=== PATIENT | female | born 1955 | race Caucasian/White ===

== ENCOUNTER 2018-07-18 09:20 | Emergency (ER) | payer BC ==
[2018-07-18 09:56] LABS: BASO % 0.2 % (0-6); EOS % 2.3 % (0-6); GRAN % 46.1 % (47-80); HEMATOCRIT 42.7 % (35.0-47.0); HEMOGLOBIN 14.4 gm/dl (11.6-16.0); LYMPH % 40.5 % (16-45); MEAN CELL VOLUME 90.9 fl (81-97); MEAN CORPUSCULAR HEMOGLOBIN 30.6 pg (27-33); MEAN CORPUSCULAR HGB CONC 33.7 g/dl (32-36); MEAN PLATELET VOLUME 9.4 fl (7.4-10.4); MONO % 10.9 % (0-9); PLATELET COUNT 280 K/uL (130-400); RED CELL DISTRIBUTION WIDTH 13.5 % (11.5-14.5); WHITE BLOOD COUNT W/O DIFF 4.4 K/uL (4.2-12.2)
--- NOTE | 2018-07-18 10:06 | Emergency Department Record ---
History of Present Illness - General Chief Complaint: Numbness Stated Complaint: facial droop Time Seen by Provider: 07/18/18 09:38 Source: Patient Mode of Arrival: Ambulatory Limitations: No limitations - History of Present Illness Initial Comments: pt started having R facial drooping and numbness 21 hrs ago. pt denies other symptoms. pt was concerned that she might have a stroke. her water dribbled out of her mouth. Onset/Timin -: Hour(s) Location: Right face History of same: No Place: Home Severity: Moderate Improves With: None Worsens With: None On Anticoagulants: No Associated Symptoms: Denies other symptoms - [place] Coma Scale Eye Response: (4) Open spontaneously Motor Response: (6) Obeys commands Verbal Response: (5) Oriented [place] Total: 15 - Symptoms of Stroke Onset of Symptoms Date: 07/07/18 Symptoms of stroke: Muscle Weakness, Numbness - Related Data Home Medications: Home Medications Medication Instructions Recorded Confirmed Last Taken Triamterene/Hydrochlorothiazid 1 each PO DAILY 07/18/18 07/18/18 07/18/18 [Triamterene-Hctz 75-50 mg Tab] Previous Rx's Medication Instructions Recorded Prednisone [Prednisone 10Mg] 10 mg PO ASDIR #30 tab 07/18/18 Allergies/Adverse Reactions: Allergies Allergy/AdvReac Type Severity Reaction Status Date / Time latex Allergy Severe RASH Verified 07/18/18 09:30 Travel Screening - Travel/Exposure Within Last 30 Days Have you traveled within the last 30 days?: No - Travel/Exposure Within Last Year Have you traveled outside the [place] in the last year?: No - Additonal Travel Details Have you been exposed to anyone with a communicable illness?: No - Travel Symptoms Symptom Screening: None Review of Systems Reviewed: No additional complaints except as noted below Constitutional: Reports: As per HPI. Denies: Chills, Fever, Malaise, Night sweats, Weakness, Weight change Eyes: Reports: As per HPI. Denies: Eye discharge, Eye pain, Photophobia, Vision change ENT: Reports: As per HPI. Denies: Congestion, Dental pain, Ear pain, Epistaxis , Hearing loss, Throat pain Respiratory: Reports: As per HPI. Denies: Cough, Dyspnea, Hemoptysis, Stridor, Wheezes Cardiovascular: Reports: As per HPI. Denies: Arrhythmia, Chest pain, Dyspnea on exertion, Edema, Murmurs, Orthopnea, Palpitations, Paroxysmal nocturnal dyspnea, Rheumatic Fever, Syncope Endocrine: Reports: As per HPI. Denies: Fatigue, Heat or cold intolerance, Polydipsia, Polyuria Gastrointestinal: Reports: As per HPI. Denies: Abdominal pain, Constipation, Diarrhea, Hematemesis, Hematochezia, Melena, Nausea, Vomiting Genitourinary: Reports: As per HPI. Denies: Abnormal menses, Discharge, Dyspareunia, Dysuria, Frequency, Hematuria, Incontinence, Retention, Urgency Musculoskeletal: Reports: As per HPI. Denies: Arthralgia, Back pain, Gout, Joint swelling, Myalgia, Neck pain Skin: Reports: As per HPI. Denies: Bruising, Change in color, Change in hair/ nails, Lesions, Pruritus, Rash Neurological: Reports: As per HPI. Denies: Abnormal gait, Confusion, Headache, Numbness, Paresthesias, Seizure, Tingling, Tremors, Vertigo, Weakness Psychiatric: Reports: As per HPI. Denies: Anxiety, Auditory hallucinations, Depression, Homicidal thoughts, Suicidal thoughts, Visual hallucinations Hematological/Lymphatic: Reports: As per HPI. Denies: Anemia, Blood Clots, Easy bleeding, Easy bruising, Swollen glands Past Medical History - SOCIAL HISTORY Smoking Status: Never smoker Alcohol Use: Rare Drug Use: None - RESPIRATORY Hx Respiratory Disorders: Yes Hx Asthma: Yes Hx Sleep Apnea: Yes Hx of CPAP: Yes - CARDIOVASCULAR Hx Hypertension: Yes - NEURO Hx Neuro Disorders: No - GI Hx Reflux: Yes Comment:: gastric sleeve - Hx Genitourinary Disorders: No - ENDOCRINE Hx Endocrine Disorders: No Hx Diabetes: No Hx Thyroid Disease: No - MUSCULOSKELETAL Hx Musculoskeletal Disorders: Yes Hx Arthritis: Yes - PSYCH Hx Psych Problems: Yes Hx Anxiety: Yes Hx Depression: Yes - HEMATOLOGY/ONCOLOGY Hx Hematology/Oncology Disorders: No Hx Cancer: No Family Medical History Any Significant Family History?: Yes Hx Diabetes: Father Hx Heart Disease: Mother Hx Stroke: Brother/Sister Physical Exam - General General Appearance: Alert, Oriented x3, Cooperative, Mild distress - Head Head exam: Normal inspection - Eye Eye exam: Normal appearance, PERRL, EOMI Pupils: Normal accommodation - ENT ENT exam: Normal exam, Mucous membranes moist, Normal external ear exam, Normal orophraynx, TM's normal bilaterally Ear exam: Normal external inspection. negative: External canal tenderness Nasal Exam: Normal inspection. negative: Discharge, Sinus tenderness Mouth exam: Normal external inspection, Tongue normal Teeth exam: Normal inspection. negative: Dental caries Throat exam: Normal inspection. negative: Tonsillar erythema, Tonsillar exudate - Neck Neck exam: Normal inspection, Full ROM. negative: Tenderness - Respiratory Respiratory exam: Normal lung sounds bilaterally. negative: Respiratory distress - Cardiovascular Cardiovascular Exam: Regular rate, Normal rhythm, Normal heart sounds - GI/Abdominal GI/Abdominal exam: Soft, Normal bowel sounds. negative: Tenderness - Rectal Rectal exam: Deferred - exam: Deferred - Extremities Extremities exam: Normal inspection, Full ROM, Normal capillary refill. negative: Tenderness - Back Back exam: Reports: Normal inspection, Full ROM. Denies: Muscle spasm, Rash noted, Tenderness - Neurological Neurological exam: Alert, CN II-XII intact, Motor sensory deficit (r side of face drooping w decreased sensation, unable to raise eyebrow), Normal gait, Oriented X3 - Psychiatric Psychiatric exam: Normal affect, Normal mood - Skin Skin exam: Dry, Intact, Normal color, Warm Course Vital Signs 07/18/18 09:22 Temperature 98.1 F Pulse Rate 83 Respiratory 18 Rate Blood Pressure 148/91 Pulse Ox 97 - Reevaluation(s) Reevaluation #1: 07/18/18 11:41 ct shows no stroke but increased atrophy for age Medical Decision Making - Lab Data Result diagrams: 07/18/18 09:25 07/18/18 09:25 Disposition Disposition: Discharge Clinical Impression: Briones's palsy Disposition: Home, Self-Care Condition: (1) Good Instructions: Briones Palsy (ED) Additional Instructions: follow up with family doctor and with neurologist. return sooner if worse. tape eye shut at night. Prescriptions: Prednisone [Prednisone 10Mg] 10 mg PO ASDIR #30 tab Forms: Patient Portal Access Quality - Quality Measures Quality Measures: N/A - Blood Pressure Screening Does Patient Have Any of the Following: No Blood Pressure Classification: Hypertensive Reading Systolic Measurement: 148 Diastolic Measurement: 91 Screening for High Blood Pressure: < First Hypertensive BP, F/U Documented > [ G8950] First Hypertensive Follow-up Interventions: Follow-up with rescreen GT 1 day and LT 4 weeks.
[2018-07-18 10:08] LABS: EST GLOMERULAR FILTRATION RATE > 60 mL/min; TOTAL PROTEIN 7.2 g/dL (6.6-8.7)
[2018-07-18 10:13] LABS: ALB/GLOB RATIO 1.4 (1.1-1.8); ALBUMIN 4.2 g/dL (4.0-5.0); ALKALINE PHOSPHATASE 77 U/L (35-104); ALT/SGPT 19 U/L (<33); AST/SGOT 18 U/L (10.0-35.0)
[2018-07-18 10:20] LABS: BLOOD UREA NITROGEN 19 mg/dL (8-23)
[2018-07-18 10:21] LABS: CREATININE 0.7 mg/dL (0.5-0.9)
[2018-07-18 10:23] LABS: GLUCOSE,RANDOM 89 mg/dL (74-109)
--- NOTE | 2018-07-19 13:29 | CT SCAN REPORT ---
EXAM: CT OF THE HEAD WITHOUT CONTRAST HISTORY: LEFT SIDED FACIAL DROOP. TECHNIQUE: Sequential axial images were obtained from the foramen magnum to the vertex without contrast administration. FINDINGS: There is increased cortical atrophy. No large territorial infarct, hemorrhage, mass effect, or midline shift. No extraaxial fluid collection. The orbits, paranasal sinuses and mastoid air cells are normal. IMPRESSION: INCREASED CORTICAL ATROPHY. NO ACUTE INTRACRANIAL ABNORMALITY. JOB NUMBER: [id number] MTDD
== END 2018-07-18 11:57 | disposition home or self-care (01) ==
LOC: ER 09:20
DX: G51.0 Bell's palsy (principal); I10 Essential (primary) hypertension
CPT/HCPCS: 70450; 80053; 85025; 99283; 99284

== ENCOUNTER 2019-05-04 18:59 | Emergency (ER) | payer BC ==
[2019-05-04 19:18] LABS: URINE APPEARANCE CLEAR; URINE BILIRUBIN NEGATIVE (NEGATIVE); URINE BLOOD NEGATIVE (NEGATIVE); URINE COLOR YELLOW; URINE GLUCOSE (UA) NEGATIVE (NEGATIVE); URINE KETONE NEGATIVE (NEGATIVE); URINE LEUKOCYTE ESTERASE TRACE (NEGATIVE); URINE NITRITE NEGATIVE (NEGATIVE); URINE PROTEIN NEGATIVE (NEGATIVE); URINE UROBILINOGEN 0.2 E.U./dL (0.20 - 1.00)
[2019-05-04] MEDS ORDERED: HYDROCODONE/APAP 5/325MG TABLET PO ONE (19:19)
--- NOTE | 2019-05-04 19:20 | Emergency Department Record ---
History of Present Illness - General Stated Complaint: RT HIP PAIN/KIDNEY INFECTION Time Seen by Provider: 05/04/19 19:05 Source: Patient, Family Mode of Arrival: Ambulatory Limitations: No limitations - History of Present Illness Initial comments: 63 yo female presents with two concerns. She reports in November she had a right hip replacement revision. She reports she has had pain since that time. In December she did have some yellow drainage. She has not had any since then. At that time she states there was some concern for infection and she was treated with antibiotics with Dr Nguyen. Her last visit with him was in January. She states she has never been pain free ever. The last 3-4 days the pain in the right hip has increased. It is lateral and posterior. No injury. No falls. No swelling, warmth, fevers or redness. Additionally she states she has had UTI symptoms over the last 3 weeks. She is still having some frequency. PCP [facility]. -: Month(s) Location: Right, Lower extremity Radiation: Non-Radiating Quality: Aching Consistency: Constant Improves with: Rest Worsens with: Movement Associated Symptoms: Other (urinary frequency) - [place] Coma Scale Eye Response: (4) Open spontaneously Motor Response: (6) Obeys commands Verbal Response: (5) Oriented [place] Total: 15 - Related Data Previous Rx's Medication Instructions Recorded Hydrocodone/Acetaminophen [[place] 1 tab PO Q6H PRN #10 tab 05/04/19 5mg/325mg] Allergies Allergy/AdvReac Type Severity Reaction Status Date / Time latex Allergy Severe RASH Verified 05/04/19 20:17 Review of Systems Constitutional: Denies: Chills, Fever, Malaise, Weakness Eyes: Denies: Eye discharge, Eye pain, Photophobia, Vision change ENT: Denies: Congestion, Throat pain Respiratory: Denies: Cough, Dyspnea Cardiovascular: Denies: Chest pain, Palpitations Endocrine: Denies: Fatigue Gastrointestinal: Denies: Abdominal pain, Diarrhea, Nausea, Vomiting Genitourinary: Reports: Dysuria, Frequency, Urgency. Denies: Hematuria Musculoskeletal: Reports: As per HPI, Arthralgia. Denies: Back pain Skin: Denies: Bruising, Change in color, Rash Neurological: Denies: Headache Psychiatric: Denies: Anxiety Hematological/Lymphatic: Denies: Easy bleeding, Easy bruising Past Medical History - SOCIAL HISTORY Smoking Status: Never smoker Drug Use: None - RESPIRATORY Hx Respiratory Disorders: Yes Hx Asthma: Yes Hx Sleep Apnea: Yes Hx of CPAP: Yes - CARDIOVASCULAR Hx Hypertension: Yes - NEURO Hx Neuro Disorders: No - GI Hx Reflux: Yes Comment:: gastric sleeve - Hx Genitourinary Disorders: No - ENDOCRINE Hx Endocrine Disorders: No Hx Diabetes: No Hx Thyroid Disease: No - MUSCULOSKELETAL Hx Musculoskeletal Disorders: Yes Hx Arthritis: Yes - PSYCH Hx Psych Problems: Yes Hx Anxiety: Yes Hx Depression: Yes - HEMATOLOGY/ONCOLOGY Hx Hematology/Oncology Disorders: No Hx Cancer: No Family Medical History Hx Diabetes: Father Hx Heart Disease: Mother Hx Stroke: Brother/Sister Physical Exam - General General Appearance: Alert, Oriented x3, Cooperative, No acute distress Limitations: No limitations - Head Head exam: Atraumatic, Normal inspection - Eye Eye exam: Normal appearance, PERRL. negative: Conjunctival injection, Scleral icterus - ENT ENT exam: Normal exam, Mucous membranes moist Ear exam: Normal external inspection Nasal Exam: Normal inspection Mouth exam: Normal external inspection - Neck Neck exam: Normal inspection - Respiratory Respiratory exam: Normal lung sounds bilaterally. negative: Respiratory distress - Cardiovascular Cardiovascular Exam: Regular rate, Normal rhythm, Normal heart sounds - GI/Abdominal GI/Abdominal exam: Soft. negative: Distended, Guarding, Rebound, Rigid, Tenderness - Rectal Rectal exam: Deferred - exam: Deferred - Extremities Extremities exam: Normal inspection, Full ROM, Normal capillary refill, Tenderness. negative: Calf tenderness, Joint swelling, Pedal edema Image of Full Body: 1 - well healed, well appearing scar, no warmth or redness, tender at the scar and posterior to it, full ROM WITHOUT cause of pain. No limitation in ROM - Back Back exam: Denies: CVA tenderness (R), CVA tenderness (L) - Neurological Neurological exam: Alert, Oriented X3 - Psychiatric Psychiatric exam: Normal affect, Normal mood - Skin Skin exam: Dry, Intact, Normal color, Warm. negative: Erythema Course Vital Signs 05/04/19 19:06 Temperature 98.5 F Pulse Rate [ 77 Pulse Ox Probe] Respiratory 20 Rate Blood Pressure 148/85 [Left Arm] Pulse Ox 98 - Reevaluation(s) Reevaluation #1: 05/04/19 19:53 The CBC and CMP is normal The UA is negative for conclusive infection 05/04/19 19:58 CRP is normal at 0.29 05/04/19 20:01 The hip XR was reviewed. No acute process. Chronic arthritic changes 05/04/19 20:23 ESR is 21 I discussed the labs with the patient There is no acute sign of what is causing her chronic right hip pain with normal CBC, CRP, and ESR and nothing obvious on XR I strongly recommend follow up with Dr Nguyen her orthopedic doctor for a recheck and to review the ED work up 05/04/19 23:48 Medical Decision Making - Lab Data Result diagrams: 05/04/19 19:30 05/04/19 19:30 Disposition Disposition: Discharge Clinical Impression: Dysuria, Hip pain, right Disposition: Home, Self-Care Condition: (1) Good Instructions: Hip Pain (ED) Additional Instructions: Call your family doctor and your orthopedic doctor for the next available follow up appointment Review this ER visit and the tests performed with your doctors Return to the ER for a recheck if worse, any new concerns or questions Take the prescriptions provided as directed Prescriptions: Hydrocodone/Acetaminophen [[place] 5mg/325mg] 1 tab PO Q6H PRN #10 tab PRN Reason: Pain - General Forms: Patient Portal Access Time of Disposition: 20:24 Quality - Quality Measures Quality Measures: N/A - Blood Pressure Screening Does Patient Have Any of the Following: No Blood Pressure Classification: Pre-Hypertensive BP Reading Systolic Measurement: 148 Diastolic Measurement: 85 Screening for High Blood Pressure: < Pre-Hypertensive BP, F/U Documented > [G8950] Pre-Hypertensive Follow-up Interventions: Referral to alternative/primary care provider.
[2019-05-04 19:26] LABS: URINE EPITHELIAL CELLS 0 - 2 (FEW); URINE RBC 0 - 2 (NONE SEEN); URINE WBC 0 - 2 (0-2/hpf)
[2019-05-04 19:40] LABS: ABSOLUTE NEUTROPHIL COUNT 1.98; BASO % 0.4 % (0-6); EOS % 3.3 % (0-6); GRAN % 37.8 % (47-80); HEMATOCRIT 41.2 % (35.0-47.0); HEMOGLOBIN 13.3 gm/dl (11.6-16.0); LYMPH % 48.7 % (16-45); MEAN CELL VOLUME 86.9 fl (81-97); MEAN CORPUSCULAR HEMOGLOBIN 28.1 pg (27-33); MEAN CORPUSCULAR HGB CONC 32.3 g/dl (32-36); MEAN PLATELET VOLUME 9.6 fl (7.4-10.4); MONO % 9.8 % (0-9); PLATELET COUNT 296 K/uL (130-400); RED BLOOD COUNT 4.74 M/uL (3.80-5.40); RED CELL DISTRIBUTION WIDTH 14.1 % (11.5-14.5); WHITE BLOOD COUNT W/O DIFF 5.2 K/uL (4.2-12.2)
[2019-05-04 19:49] LABS: BLOOD UREA NITROGEN 19 mg/dL (8-23)
[2019-05-04 19:50] LABS: CREATININE 0.8 mg/dL (0.5-0.9); EST GLOMERULAR FILTRATION RATE > 60 mL/min
[2019-05-04 19:52] LABS: GLUCOSE,RANDOM 101 mg/dL (74-109)
[2019-05-04 19:55] LABS: C-REACTIVE PROTEIN 0.29 mg/dL (<0.5)
[2019-05-04 20:16] LABS: ERYTHROCYTE SEDIMENTATION RATE 21 mm/hr (0-30)
--- NOTE | 2019-05-06 09:02 | RADIOLOGY REPORT ---
EXAM: RIGHT HIP WITH PELVIS HISTORY: RIGHT HIP PAIN. TECHNIQUE: Three views of the right hip and pelvis were obtained. Comparison: None. FINDINGS: There is a right hip prosthesis present. There is no fracture or dislocation. No destructive or erosive changes. There are soft tissue calcifications adjacent to the greater trochanter. There are arthritic changes in the left sacroiliac joint. The left hip joint is unremarkable. IMPRESSION: 1. THERE IS A RIGHT HIP PROSTHESIS. NO FRACTURE, DISLOCATION, OR COMPLICATING PROCESS. 2. ARTHRITIC CHANGES LEFT SACROILIAC JOINT. JOB NUMBER: [id number] [facility]
== END 2019-05-04 20:39 | disposition home or self-care (01) ==
LOC: ER 18:59
DX: G89.29 Other chronic pain (principal); M25.551 Pain in right hip; R33.0 Drug induced retention of urine; I10 Essential (primary) hypertension; Z96.641 Presence of right artificial hip joint
CPT/HCPCS: 80048; 81001; 85025; 85651; 86140; 99284

== ENCOUNTER 2019-06-17 12:35 | Day surgery (SDC) | payer BC ==
[~2019-06-17 12:35] MED LIST: ACETAMINOPHEN 1,000 MG/100 ML BTL IVPB ONE; CEFAZOLIN 2 Gram 2 GM/50 ML BAG IVPB ONE; FAMOTIDINE 20MG TABLET PO ONE; METOCLOPRAMIDE 10 MG TABLET PO ONE; SCOPOLAMINE 1 PATCH TDSY TD ONE
[2019-06-17] MEDS ORDERED: PROPOFOL 10 MG/ML VIAL IV ONE (12:36)
[2019-06-17] MEDS ORDERED: SEVOFLURANE 250 ML INH ONE (12:36)
[2019-06-17] MEDS ORDERED: LIDOCAINE 2% MDV (20MG/ML) 20ML VIAL IV ONE (12:36)
[2019-06-17] MEDS ORDERED: ONDANSETRON HCL IV 4 MG/2 ML VIAL IVP ONE (12:36)
[2019-06-17] MEDS ORDERED: FENTANYL PF 100MCG/2ML VIAL IV ONE (12:36)
[2019-06-17] MEDS ORDERED: MIDAZOLAM HCL 2MG/2ML VIAL IV ONE (12:36)
[2019-06-17] MEDS ORDERED: KETOROLAC 30 MG/ML VIAL IVP ONE (12:36)
[2019-06-17] MEDS ORDERED: RINGERS SOLUTION,LACTATED 1,000 ML IV ONE (13:43)
[2019-06-17] MEDS ORDERED: PHENAZOPYRIDINE HCL 95 MG TABLET PO ONE (15:01)
== END 2019-06-17 15:18 | disposition home or self-care (01) ==
LOC: SUR 12:35
PROVIDERS: ATTEND Urology
DX: N20.1 Calculus of ureter (principal); I10 Essential (primary) hypertension; Z68.36 Body mass index [BMI] 36.0-36.9, adult
CPT/HCPCS: 52356; 52352; 00918; C2617; C1769; Q9958; J1885; J2405; J3010; J0690; J7120

== ENCOUNTER 2019-08-20 11:02 | Emergency (ER) | payer BC ==
--- NOTE | 2019-08-20 11:41 | Emergency Department Record ---
History of Present Illness - General Chief Complaint: Numbness Stated Complaint: RT SIDE FACIAL NUMBNESS Time Seen by Provider: 08/20/19 11:31 Source: Patient Mode of Arrival: Ambulatory Limitations: No limitations - History of Present Illness Initial Comments: The patient is here due to a one week hx of very mild R facial numbness and weakness. She denies any visual or speech issues and also no arm or leg numbness or weakness. Additionally the patient has had no [place], gait problems, confusion, CP, SOB or fevers. She does have a hx of Briones's Palsey a year ago to the R side of her face and feels like the symptoms are returning. Today she thought she s hould come in and get steroids so the symptoms do not get as bad as last year. Onset/Timin -: Week(s) Location: Right face History of same: Yes Severity: Mild Improves With: None Worsens With: None On Anticoagulants: No Associated Symptoms: Denies other symptoms Treatments Prior to Arrival: None - [place] Coma Scale Eye Response: (4) Open spontaneously Motor Response: (6) Obeys commands Verbal Response: (5) Oriented [place] Total: 15 - Related Data Home Medications: Previous Rx's Medication Instructions Recorded Prednisone [Prednisone 20Mg] 20 mg PO ASDIR #15 tab 08/20/19 Allergies/Adverse Reactions: Allergies Allergy/AdvReac Type Severity Reaction Status Date / Time latex Allergy Severe RASH Verified 08/20/19 11:22 Travel Screening - Travel/Exposure Within Last 30 Days Have you traveled within the last 30 days?: No - Travel/Exposure Within Last Year Have you traveled outside the [place] in the last year?: No - Additonal Travel Details Have you been exposed to anyone with a communicable illness?: No - Travel Symptoms Symptom Screening: None Review of Systems Constitutional: Denies: Chills, Fever Eyes: Denies: Eye discharge ENT: Denies: Congestion Respiratory: Denies: Cough, Dyspnea Cardiovascular: Denies: Chest pain Endocrine: Denies: Fatigue Gastrointestinal: Denies: Nausea Genitourinary: Denies: Dysuria Musculoskeletal: Denies: Arthralgia Past Medical History - SOCIAL HISTORY Smoking Status: Never smoker Alcohol Use: None Drug Use: None - RESPIRATORY Hx Respiratory Disorders: Yes Hx Asthma: Yes Hx Bronchitis: Yes (not recently) Hx Pneumonia: Yes (twice-last 07/2018) Hx Sleep Apnea: Yes Hx of CPAP: Yes - CARDIOVASCULAR Hx Cardio Disorders: Yes Hx Heart Attack: No Hx Hypertension: Yes - NEURO Hx Neuro Disorders: No - GI Hx GI Disorders: Yes Hx Reflux: No Hx Hiatal Hernia: Yes (repaired with gastric sleeve sx) Hx Wt Loss/Wt Gain: Yes (loss 80lbs) Hx of Polyps: Yes (benign colon) Comment:: gastric sleeve - Hx Genitourinary Disorders: Yes Hx Kidney Stones: Yes (left distal ureter (per CT scan 05/24/19)) Hx Renal Disease: (kidney infections x 2 months-on ABX multiple rounds) Hx UTI: Yes (kidney infection x 2 months) Comment:: hysterectomy - ENDOCRINE Hx Endocrine Disorders: No - MUSCULOSKELETAL Hx Musculoskeletal Disorders: Yes Hx Arthritis: Yes - PSYCH Hx Psych Problems: Yes Hx Anxiety: Yes Hx Depression: Yes - HEMATOLOGY/ONCOLOGY Hx Hematology/Oncology Disorders: Yes Hx Cancer: No Hx Blood Transfusions: Yes (after hip replacement) Hx Blood Transfusion Reaction: No Family Medical History Any Significant Family History?: Yes Hx Diabetes: Father Hx Heart Disease: Father, Mother Hx Kidney Disease: Father, Brother/Sister *Kidney Comment: calculi Hx Stroke: Brother/Sister Physical Exam - General General Appearance: Alert, Oriented x3, Cooperative, No acute distress - Head Head exam: Atraumatic, Normocephalic, Normal inspection - Eye Eye exam: Normal appearance, PERRL, EOMI. negative: Nystagmus - ENT Throat exam: Normal inspection. negative: Tonsillar erythema, Tonsillar exudate - Neck Neck exam: Normal inspection, Full ROM. negative: Tenderness - Respiratory Respiratory exam: Normal lung sounds bilaterally. negative: Respiratory distress - Cardiovascular Cardiovascular Exam: Regular rate, Normal rhythm, Normal heart sounds - GI/Abdominal GI/Abdominal exam: Soft, Normal bowel sounds. negative: Tenderness - Extremities Extremities exam: Normal inspection, Full ROM, Normal capillary refill. negative: Tenderness - Neurological Neurological exam: Alert, Motor sensory deficit (There is no numbness or weakness to the arms or legs. There is very subtle R facial weakness and numbness to the upper AND lower R sided facial muscles. There is also very slight decreased sensation to the R cheek and forehead compared to the L. The patient feels these symptoms are exactly similar as last year when she had the Briones's Palsey.), Normal gait, Oriented X3, Reflexes normal, Other (Neg Drift and [place].). negative: Abnormal gait, Altered - Skin Skin exam: negative: Rash Course Vital Signs 08/20/19 11:24 Temperature 98.1 F Pulse Rate 71 Respiratory 20 Rate Blood Pressure 143/87 Pulse Ox 98 - Reevaluation(s) Reevaluation #1: The patient is doing very well at this time. I did discuss the issues and did agree that it is possible that she is having another episode of Briones's Palsey. Due to that fact the patient would like to try a course of oral steroids to prevent it from getting worse. She is to take the Steroids as directed and see her PCP this week for recheck. 08/20/19 12:47 Medical Decision Making - Data Complexity MDM Data: Labs Ordered and/or Reviewed, X-Ray Ordered and/or Reviewed - Lab Data Result diagrams: 08/20/19 11:45 08/20/19 11:45 - Radiology Data Radiology results: Report reviewed (Head CT: Neg for acute changes.) Disposition Disposition: Discharge Clinical Impression: Briones's palsy Disposition: Home, Self-Care Condition: (2) Stable Instructions: Briones Palsy (ED) Additional Instructions: Please take the oral steroids as directed and please see your family doctor next week if not better. Return to the ER for any worsening symptoms. Prescriptions: Prednisone [Prednisone 20Mg] 20 mg PO ASDIR #15 tab Forms: Patient Portal Access Time of Disposition: 12:49 Quality - Quality Measures Quality Measures: N/A - Blood Pressure Screening View Details: Yes Does Patient Have Any of the Following: No Blood Pressure Classification: Pre-Hypertensive BP Reading Systolic Measurement: 143 Diastolic Measurement: 87 Screening for High Blood Pressure: < Pre-Hypertensive BP, F/U Documented > [G8950] Pre-Hypertensive Follow-up Interventions: Referral to alternative/primary care provider.
[2019-08-20 12:01] LABS: ABSOLUTE NEUTROPHIL COUNT 2.37; BASO % 0.2 % (0-6); EOS % 1.3 % (0-6); GRAN % 51.3 % (47-80); HEMATOCRIT 43.5 % (35.0-47.0); HEMOGLOBIN 13.9 gm/dl (11.6-16.0); LYMPH % 37.7 % (16-45); MEAN CELL VOLUME 86.7 fl (81-97); MEAN CORPUSCULAR HEMOGLOBIN 27.7 pg (27-33); MEAN PLATELET VOLUME 9.4 fl (7.4-10.4); MONO % 9.5 % (0-9); PLATELET COUNT 293 K/uL (130-400); RED BLOOD COUNT 5.02 M/uL (3.80-5.40); RED CELL DISTRIBUTION WIDTH 13.7 % (11.5-14.5); WHITE BLOOD COUNT W/O DIFF 4.6 K/uL (4.2-12.2)
[2019-08-20 12:15] LABS: BLOOD UREA NITROGEN 19 mg/dL (8-23); CREATININE 0.7 mg/dL (0.5-0.9); EST GLOMERULAR FILTRATION RATE > 60 mL/min
[2019-08-20 12:16] LABS: TOTAL PROTEIN 7.7 g/dL (6.6-8.7)
[2019-08-20 12:18] LABS: GLUCOSE,RANDOM 138 mg/dL (74-109)
[2019-08-20 12:20] LABS: ALT/SGPT 15 U/L (<33)
[2019-08-20 12:21] LABS: ALB/GLOB RATIO 1.4 (1.1-1.8); ALBUMIN 4.5 g/dL (4.0-5.0); ALKALINE PHOSPHATASE 103 U/L (35-104); AST/SGOT 16 U/L (10.0-35.0)
--- NOTE | 2019-08-20 12:42 | CT SCAN REPORT ---
EXAMINATION: CT Head without IV Contrast EXAM DATE: 08/20/2019 12:01 PM TECHNIQUE: Standard protocol CT images of the head were obtained without intravenous contrast. Jara l and sagittal reconstructed images were created. INDICATION: R facial numbness COMPARISON: CT brain July 18, 2018 HAND DOMINANCE: Unknown. ENCOUNTER: Not applicable FINDINGS: 1. There is no intracranial mass, midline shift, extraaxial fluid collection or hemorrhage. 2. The ventricles, sulci and cisterns are prominent consistent with moderate diffuse cerebral atroph y. 3. Mild areas of low-attenuation in the periventricular white matter and subcortical white matter co nsistent with chronic small vessel ischemia. No loss of arriaza-white matter differentiation or sulcal e ffacement to indicate acute infarction. 4. No depressed or widely calvarial fracture. 5. The visualized aspects of the orbits, paranasal sinuses, and mastoid air cells are unremarkable e xcept for mild inflammation in the ethmoidal sinuses bilaterally.. IMPRESSION: 1. No acute intracranial hemorrhage, mass lesion or mass effect. 2. Moderate diffuse cerebral atrophy, similar to the previous CT. 3. Mild chronic small vessel ischemia. Dictated by: Jose G Pettit MD on 08/20/2019 12:35 PM. .
== END 2019-08-20 13:01 | disposition home or self-care (01) ==
LOC: ER 11:02
DX: G51.0 Bell's palsy (principal); I10 Essential (primary) hypertension
CPT/HCPCS: 70450; 80053; 85025; 99284